=== PATIENT | male | born 1975 | race Two or more races ===

== ENCOUNTER 2025-04-17 11:49 | Day surgery (SDC) | payer BC, SELFPAY ==
[2025-04-17] VITALS (10 sets, daily range): BP systolic 112–136; BP diastolic 65–87; PULSE 73–92; RESP 7–20; TEMP 36.7–36.9; O2SAT 98–100; BMI 22.3
[2025-04-17] MEDS: SODIUM CHLORIDE 0.9% 500 ML 500 ML 20 ML IV (13:24)
[2025-04-17] MEDS: fentaNYL CIT INJ 50 mCg/ML AMP 2ML (ASD USE ONLY) IVP (13:31)
[2025-04-17] MEDS: MIDAZOLAM INJ 1 MG/ML VIAL 2 ML (ASD USE ONLY) 2 MG IVP (13:31)
--- NOTE | 2025-04-17 14:55 | SUR.PHASEII ---
1428 Pt assessment unchanged. No complaints. Abd remains soft. Samantha PO fluids. Able to dress self. Pt and given dc instructions. Both state understanding. Pt meets dc criteria-to home.
== END 2025-04-17 14:28 | disposition home or self-care (01) ==
PROVIDERS: PCP Family Medicine; Referring Provider Specialist; Visit Provider Specialist
PROC: 0DBE8ZX Excision of Large Intestine, Via Natural or Artificial Opening Endoscopic, Diagnostic (ICD-10-PCS; CPT 45380; principal; 2025-04-17 10:45)
DX: Z12.11 Encounter for screening for malignant neoplasm of colon (principal); K64.1 Second degree hemorrhoids
CPT/HCPCS: 45378; A4649; J1200; J2250; J3010; J7999